=== PATIENT | female | born 1965 | race Caucasian/White ===

== ENCOUNTER 2016-11-29 01:39 | Emergency (ER) | payer BC ==
[~2016-11-29] VITALS: Ht 170.2 cm; Wt 70.0 kg
[2016-11-29 01:45] VITALS: TEMP 36.9; Ht 170.2 cm; Wt 70.0 kg
[2016-11-29] MEDS ORDERED: MoRPHine SULFATE 4 MG/ML 1 ML CARP\\VIAL IV STA ×2 (01:54→04:06)
[2016-11-29] MEDS ORDERED: SODIUM CHLORIDE 0.9% 1000ML 1,000 ML IV STA ×2 (01:54)
[2016-11-29] MEDS ORDERED: ONDANSETRON INJ 2 MG/ML 2 ML VIAL IV STA (01:54)
[2016-11-29 02:22] VITALS: O2SAT 98
[2016-11-29 02:27] LABS: BASO % 0.4 %; BASO ABS # 0.02 K/uL (0-0.2); COMPLETE YES; EOS % 4.7 %; IG% 0.4 %; LYMPH % 33.6 %; LYMPH ABS # 1.78 K/uL (1.2-3.4); MEAN CELL VOLUME 91.3 fL (80-100); MEAN CORPUSCULAR HGB CONC 32.8 g/dl (32-36); MEAN PLATELET VOLUME 10.1 fL (7.4-10.4); MONO % 14.4 %; NEUT % 46.5 %; PLATELET COUNT 241 K/uL (130-400); RED BLOOD COUNT 4.27 M/uL (4.2-5.4); WHITE BLOOD COUNT 5.29 K/uL (4.8-10.8)
[2016-11-29 02:46] LABS: ALT/SGPT 33 U/L (12-78); AST/SGOT 28 U/L (15-37); BLOOD UREA NITROGEN 15 mg/dl (7-18); BUN/CREATININE RATIO 15.7 (10-20); CALCIUM 8.6 mg/dl (8.5-10.1); CARBON DIOXIDE 27 mmol/L (21-32); CHLORIDE 105 mmol/L (98-107); CREATININE 0.93 mg/dl (0.60-1.20); GLUCOSE 99 mg/dl (70-99); POTASSIUM 3.7 mmol/L (3.5-5.1); SODIUM 140 mmol/L (136-145)
[2016-11-29 02:51] LABS: ALKALINE PHOSPHATASE 67 U/L (45-117)
[2016-11-29 02:58] LABS: PREG INTERNAL NEGATIVE QC NEG CLEAR BACKGROUND; PREG INTERNAL POSITIVE QC POS CONTROL LINE
--- NOTE | 2016-11-29 04:11 | EMERGENCY ROOM VISIT NOTE ---
History First contact with patient: 01:51 Chief Complaint: ABDOMINAL PAIN Stated Complaint: STOMACH/ABDOMINAL PAIN,THROWING UP Nursing Triage Summary: c/o rt sided abd pain with n/v. hx of gallbladder issues per pt. History of Present Illness The patient is a 51 year old female who presents to the Emergency Room with complaints of nausea, vomiting, right upper quadrant pain for the past day described as aching, ranging in severity 8 out of 10. Nothing makes it better or worse. She has known gallbladder disease. Patient is new to the area. Patient denies chest pain, dyspnea, fever, chills, diarrhea, urinary symptoms, back pain. Review of Systems See HPI for pertinent positives & negatives. A total of 10 systems reviewed and were otherwise negative. Past Medical/Surgical History Hypertension, ADHD Social History Drug Use: none Marital Status: Housing Status: lives with family Allergies Coded Allergies: Codeine (Verified Allergy, Severe, ANAPHYLAXIS, 11/29/16) Physical Exam Vital Signs Date Time Temp Pulse Resp B/P Pulse Ox O2 Delivery O2 Flow Rate FiO2 11/29/16 02:46 63 20 167/95 97 Room Air 11/29/16 02:22 98 Room Air 11/29/16 01:45 36.9 69 20 178/92 99 Room Air Pain Rating (0-10): 6.0 Physical Exam VITALS: Vitals are noted on the nurse's note and reviewed by myself. Vital signs stable. GENERAL: Pleasant female in obvious pain, in no acute distress, nondiaphoretic, well-developed well-nourished. SKIN: The skin was without rashes, erythema, edema, or bruising. There is no tenting of the skin. Capillary reflex less than 2 seconds. HEAD: Normocephalic atraumatic. EARS: External auditory canals clear, tympanic membranes pearly pettit without erythema or effusion bilaterally. EYES: Pupils equal round and reactive to light and accommodation. Conjunctivae without injection, sclerae without icterus. Extraocular movements intact. NOSE: Patent, turbinates without inflammation or discharge. MOUTH: Mucous membranes moist. Pharynx without erythema or exudate. Uvula midline. Airway patent. Tongue does not deviate. NECK: Supple without nuchal rigidity. No lymphadenopathy. No thyromegaly. Cervical spine is nontender. No JVD. HEART: Regular rate and rhythm without murmurs gallops or rubs. LUNGS: Clear to auscultation bilaterally without wheezes, rales or rhonchi. No dullness to percussion. No retractions or accessory muscle use. ABDOMEN: Positive bowel sounds x 4. Normal tympanic percussion. Soft, tender to palpation right upper quadrant, no CVA tenderness, without masses or organomegaly. No guarding or rebound tenderness. MUSCULOSKELETAL: No muscle atrophy, erythema, or edema noted. NEURO: Patient was alert and oriented to person place and time. Normal sensation to light and sharp touch. No focal neurological deficits. Medical Decision & Procedures Laboratory Results 11/29/16 02:18 Red Blood Count 4.27, Mean Corpuscular Volume 91.3, Mean Corpuscular Hemoglobin 30.0, Mean Corpuscular Hemoglobin Concent 32.8, Mean Platelet Volume 10.1, Neutrophils (%) (Auto) 46.5, Lymphocytes (%) (Auto) 33.6, Monocytes (%) (Auto) 14.4, Eosinophils (%) (Auto) 4.7, Basophils (%) (Auto) 0.4, Neutrophils # (Auto ) 2.46, Lymphocytes # (Auto) 1.78, Monocytes # (Auto) 0.76, Eosinophils # (Auto ) 0.25, Basophils # (Auto) 0.02 11/29/16 02:18 Test 11/29/16 02:18 White Blood Count 5.29 K/uL (4.8-10.8) Red Blood Count 4.27 M/uL (4.2-5.4) Hemoglobin 12.8 g/dL (12.0-16.0) Hematocrit 39.0 % (37-47) Mean Corpuscular Volume 91.3 fL (80-100) Mean Corpuscular Hemoglobin 30.0 pg (25-34) Mean Corpuscular Hemoglobin Concent 32.8 g/dl (32-36) Platelet Count 241 K/uL (130-400) Mean Platelet Volume 10.1 fL (7.4-10.4) Neutrophils (%) (Auto) 46.5 % Lymphocytes (%) (Auto) 33.6 % Monocytes (%) (Auto) 14.4 % Eosinophils (%) (Auto) 4.7 % Basophils (%) (Auto) 0.4 % Neutrophils # (Auto) 2.46 K/uL (1.4-6.5) Lymphocytes # (Auto) 1.78 K/uL (1.2-3.4) Monocytes # (Auto) 0.76 K/uL (0.11-0.59) Eosinophils # (Auto) 0.25 K/uL (0-0.5) Basophils # (Auto) 0.02 K/uL (0-0.2) RDW Standard Deviation 44.2 fL (36.4-46.3) RDW Coefficient of Variation 13.4 % (11.5-14.5) Immature Granulocyte % (Auto) 0.4 % Immature Granulocyte # (Auto) 0.02 K/uL (0.00-0.02) Anion Gap 8.0 mmol/L (3-11) Est Creatinine Clear Calc Drug Dose 69.6 ml/min Estimated GFR () 82.5 Estimated GFR (Non- 71.2 BUN/Creatinine Ratio 15.7 (10-20) Calcium Level 8.6 mg/dl (8.5-10.1) Total Bilirubin 0.3 mg/dl (0.2-1) Direct Bilirubin < 0.1 mg/dl (0-0.2) Aspartate Amino Transf (AST/SGOT) 28 U/L (15-37) Alanine Aminotransferase (ALT/SGPT) 33 U/L (12-78) Alkaline Phosphatase 67 U/L (45-117) Troponin I < 0.015 ng/ml (0-0.045) Total Protein 7.3 gm/dl (6.4-8.2) Albumin 3.5 gm/dl (3.4-5.0) Lipase 211 U/L (73-393) Human Chorionic Gonadotropin, Qual NEG (NEG) Medications Administered Medications (Trade) Dose Ordered Sig/Octavio Route Start Time Stop Time Status Last Admin Dose Admin Morphine Sulfate (MoRPHine SULFATE INJ) 4 mg NOW STAT IV 11/29/16 01:54 11/29/16 01:56 DC 11/29/16 02:37 4 MG Ondansetron HCl 4 mg 4 mg NOW STAT IV 11/29/16 01:54 11/29/16 01:56 DC 11/29/16 02:38 4 MG Sodium Chloride 1,000 ml @ 999 mls/hr Q1H1M STAT IV 11/29/16 01:54 11/29/16 02:54 DC 11/29/16 02:37 999 MLS/HR Sodium Chloride (Nss 1000ml) 1,000 ml @ 125 mls/hr Q8H STAT IV 11/29/16 01:54 11/29/16 09:53 11/29/16 02:38 125 MLS/HR ED Course Prior records/ancillary studies reviewed. Triage Nursing notes reviewed. Additional history obtained from family. The patient's history was concerning for abdominal pain. Differential diagnosis: Etiologies such as appendicitis, diverticulitis, PUD, biliary pathology, UTI, pancreatitis, obstruction, mesenteric ischemia, aortic pathology, infections, inflammatory bowel disease, renal colic, as well as others were entertained. Physical examination findings: As above. ER treatment provided: Morphine, Zofran, IV fluids On reassessment the patient felt better. Diagnostics interpreted by me: ECG: Normal sinus, normal intervals, no acute ST-T wave changes. Impression normal sinus rhythm interpreted by myself The labs revealed no worrisome leukocytosis or electrolyte abnormality. Negative troponin Imaging studies: Ultrasound showed cholelithiasis without cholecystitis Chest x-ray with no acute consolidation, pneumothorax or free air per my interpretation Exam and history seem consistent with biliary colic. Patient was advised to avoid fatty foods and do bland diet. She is advised follow-up family care in a few days for hida scan and/or surgery. She is advised to return to the immediate for abdominal pain, fevers, vomiting, worsening signs or symptoms or as needed. Patient felt better after being medicated as above. She did not have an acute abdomen on exam. No leukocytosis. Normal LFTs.. By the evaluation outlined above emergent etiologies such as appendicitis, diverticulitis, PUD, UTI, pancreatitis, obstruction, mesenteric ischemia, aortic pathology, infections, inflammatory bowel disease, renal colic, as well as others were deemed relatively unlikely. The pt informed about the findings as listed above. All questions were answered and pleased with the treatment. Return instructions were outlined and the patient was discharged in stable condition. Outpatient prescription management: zofran, oxyIR Referral: The patient was referred back to their primary care physician and/or [facility] for follow-up in 2 to 3 days for a recheck of the current condition. Case reviewed with my attending Medical Decision As above Impression Primary Impression: Biliary colic Departure Information Dispostion Home / Self-Care Condition GOOD Referrals No Doctor, Assigned (PCP) Patient Instructions [facility] Additional Instructions Avoid fatty foods. Recommend bland diet. Recommend outpatient hida scan Ibuprofen(Motrin, Advil) may be used for fever or pain. Use 600mg every six hours as needed. Take with food. Avoid using more than 2400mg in a 24 hour period. Do not use 2400mg per day for more than three consecutive days without physician direction. Prolonged inappropriate use can lead to stomach upset or ulcers. (AND/OR) Acetaminophen(Tylenol) may be used for fever or pain. Use 1000mg every six hours as needed. Avoid using more than 3000mg in a 24 hour period. Rest and drink plenty of fluids as tolerated. Continue current medications. Avoid strenuous activities and anything that worsens your pain. Resume normal activities once your symptoms resolve. Return to the ER immediately for worsening or persistent abdominal pain, vomiting, fevers, chest pains, difficulty breathing, worsening of your condition , or as needed. Follow up with your primary physician and/or surgery in 2-3 days for a recheck of your current condition.
[2016-11-29] MEDS ORDERED: ONDANSETRON HOME PACK 4MG OD TAB PO ONE (04:15)
[2016-11-29] MEDS ORDERED: OXYCODONE IR HOME PACK PO ONE (04:15)
[2016-11-29 04:20] VITALS: BP 138/73; PULSE 78; O2SAT 96
--- NOTE | 2016-11-29 06:42 | DIAGNOSTIC IMAGING REPORT ---
CHEST ONE VIEW PORTABLE CLINICAL HISTORY: CHEST PAIN dyspnea COMPARISON STUDY: No previous studies for comparison. FINDINGS: Poorly defined parenchymal infiltrate left base. Diaphragms smooth. Right hemithorax is clear. No evidence for cardiac enlargement. IMPRESSION: Poorly defined infiltrate left base. Electronically signed by: Patrice Vergara M.D. 11/29/2016 6:41 AM Dictated Date/Time: 11/29/2016 6:41 AM
--- NOTE | 2016-11-29 06:44 | DIAGNOSTIC IMAGING REPORT ---
Right upper quadrant ultrasound GALLBLADDER-ABD LIMITED CLINICAL HISTORY: rug pain, ? GB pain. Nausea. TECHNIQUE: Ultrasound COMPARISON STUDY: None FINDINGS: Gallstones within the gallbladder. Small amount of gallbladder sludge. Common bile duct 4 mm. Fatty infiltration of liver. Poor visualization of the pancreas. Right kidney is negative for hydronephrosis. IMPRESSION: Gallstones and gallbladder sludge. Normal caliber bile duct. Fatty infiltration of liver. Electronically signed by: Patrice Vergara M.D. 11/29/2016 6:42 AM Dictated Date/Time: 11/29/2016 6:41 AM
== END 2016-11-29 04:29 | disposition home or self-care (01) ==
LOC: C.EDB 01:40
DX: K80.50 Calculus of bile duct without cholangitis or cholecystitis without obstruction (principal); I10 Essential (primary) hypertension; F90.9 Attention-deficit hyperactivity disorder, unspecified type

== ENCOUNTER → 2017-01-28 | Outpatient (CLI) | payer BC | END | disposition home or self-care (01) | LOC: C.PATHSPEC 10:03 | PROVIDERS: ATTEND Plastic Surgery | DX: R22.0 Localized swelling, mass and lump, head (principal) ==